=== PATIENT | male | born 1970 | race Caucasian/White ===

== ENCOUNTER 2018-01-01 09:47 | Day surgery (SDC) | payer OTHER ==
[2018-01-01] MEDS ORDERED: LIDOCAINE 1% SDV 5 ML VIAL SC (10:00)
[2018-01-01] MEDS ORDERED: dexameTHASONE 4 MG/ML 1ML VIAL (J1100) As Ordered (10:16)
[2018-01-01] MEDS ORDERED: UNASYN 3 GM VIAL As Ordered (10:16)
[2018-01-01] MEDS: LR 1,000 ML IV (11:02)
[2018-01-01] MEDS ORDERED: LIDOCAINE 2% INJ 100 MG/5 ML SDV (FOR ANES.) As Ordered (11:44)
[2018-01-01] MEDS ORDERED: PROPOFOL 200 MG/20 ML VIAL As Ordered (11:44)
[2018-01-01] MEDS ORDERED: fentaNYL 100 MCG/2 ML INJECTION (J3010) As Ordered ×4 (11:45→14:47)
[2018-01-01] MEDS ORDERED: MIDAZOLAM INJ 2 MG/2 ML VIAL (J2250) As Ordered (11:45)
[2018-01-01] MEDS ORDERED: ONDANSETRON 4MG/2ML VIAL (J2405) As Ordered (12:48)
[2018-01-01] MEDS ORDERED: KETOROLAC 60 MG/2 ML VIAL (J1885) As Ordered (12:48)
[2018-01-01] MEDS: dexameTHASONE 4 MG/ML 1ML VIAL (J1100) IV (13:00)
[2018-01-01] MEDS: AMPICILLIN SOD/SULBACTAM SOD 3 GM in D5W MINI-BAG PLUS 100 ML IV (13:00)
[2018-01-01] MEDS: LIDOCAINE 2% W/ EPINEPHRINE 1.7 ML DENTAL INJ As Ordered (13:50)
[2018-01-01] MEDS ORDERED: MEPERIDINE INJ 25 MG/ML VIAL (J2175) As Ordered (14:22)
[2018-01-01] MEDS: MEPERIDINE INJ 25 MG/ML VIAL (J2175) IV ×2 (14:30→14:35)
[2018-01-01] MEDS: fentaNYL 100 MCG/2 ML INJECTION (J3010) IV ×4 (14:55→15:15)
[2018-01-01] MEDS ORDERED: ONDANSETRON 4MG/2ML VIAL (J2405) IV (15:00)
[2018-01-01] MEDS ORDERED: METOCLOPRAMIDE INJ 10MG/2ML VIAL (J2765) IV (15:00)
[2018-01-01] MEDS ORDERED: LR 1,000 ML IV (15:00)
[2018-01-01] MEDS: PERCOCET 5MG/325MG TAB PO ×2 (15:15→15:40)
== END 2018-01-01 16:32 | disposition home or self-care (01) ==
LOC: M SDC 09:47
DX: K02.9 Dental caries, unspecified (principal); E78.00 Pure hypercholesterolemia, unspecified; K21.9 Gastro-esophageal reflux disease without esophagitis; H54.7 Unspecified visual loss; F32.9 Major depressive disorder, single episode, unspecified; F41.9 Anxiety disorder, unspecified; G43.909 Migraine, unspecified, not intractable, without status migrainosus; M54.30 Sciatica, unspecified side; Z88.6 Allergy status to analgesic agent; Z79.899 Other long term (current) drug therapy; Z72.0 Tobacco use
CPT/HCPCS: D9223